=== PATIENT | male | born 1985 | race Caucasian/White ===

== ENCOUNTER 2018-10-14 07:03 | Emergency (ER) | payer OTHER ==
[2018-10-14 07:27] VITALS: BP 144/84; PULSE 73; TEMP 97.6; BMI 34.4
[2018-10-14] MEDS ORDERED: KETOROLAC TROMETHAMINE 60 MG/2 ML VIAL IM ONE (07:36)
[2018-10-14] MEDS ORDERED: LIDOCAINE 5% TOPICAL PATCH TP ONE (07:37)
[2018-10-14] MEDS ORDERED: CYCLOBENZAPRINE HCL 10 MG TABLET (FP) PO ONE (07:37)
--- NOTE | 2018-10-14 07:49 | PDOC ---
History of Present Illness - General History Source: Patient Exam Limitations: No Limitations - History of Present Illness Initial Comments: 10/14/18 07:49 Patient is a 33-year-old male with no past medical history who presents to the emergency department today for low back pain since Friday10/11/18. Patient states the day before he had lifted heavy furniture including a sofa and two dressers. Patient states he also works for [employer] and lifts heavy packages daily. He states that yesterday he took Advil and was able to go to work. However today he states he woke up and worse pain and that he was unable to move. He states the pain goes down his right leg. Denies fevers, chills, trauma , fall, frequency, urgency, hematuria, saddle anesthesia, bladder/bowel incontinence, weakness to the extremities, numbness and tingling to the extremities. <Windy Shea - Last Filed: 10/14/18 09:17> <Anupama Jeronimo - Last Filed: 10/16/18 07:32> - General Chief Complaint: Back Pain Stated Complaint: BACK PAIN Time Seen by Provider: 10/14/18 07:21 Past History - Travel Traveled outside of the country in the last 30 days: No Close contact w/someone who was outside of country & ill: No - Immunization History Td Vaccination: Yes TDAP Vaccination: Yes Immunization Up to Date: Yes - Suicide/Smoking/Psychosocial Hx Smoking Status: Yes Smoking History: Never smoked Years of Tobacco Use: 15 Have you smoked in the past 12 months: Yes Number of Cigarettes Smoked Daily: 10 'Breaking Loose' booklet given: 03/31/13 Hx Alcohol Use: No Substance Use Type: Marijuana <Windy Shea - Last Filed: 10/14/18 09:17> <Anupama Jeronimo - Last Filed: 10/16/18 07:32> - Past Medical History Allergies/Adverse Reactions: Allergies Allergy/AdvReac Type Severity Reaction Status Date / Time No Known Allergies Allergy Verified 10/14/18 07:19 Home Medications: Ambulatory Orders Cyclobenzaprine HCl [Flexeril -] 10 mg PO HS #10 tablet 10/14/18 Lidocaine 5% Patch [Lidoderm -] 1 patch TP DAILY #7 patch 10/14/18 Methylprednisolone [Medrol Dose Scottie] 4 mg PO ASDIR #21 tablet 10/14/18 Review of Systems - Review of Systems Able to Perform ROS?: Yes Comments:: 10/14/18 07:38 CONSTITUTIONAL: Absent: fever, chills, diaphoresis, generalized weakness, malaise, loss of appetite GASTROINTESTINAL: Absent: abdominal pain, abdominal distension, nausea, vomiting, diarrhea, constipation, melena, hematochezia GENITOURINARY: Absent: dysuria, frequency, urgency, hesitancy, hematuria, flank pain, genital pain MUSCULOSKELETAL: Present: low back pain Absent: arthralgia, joint swelling SKIN: Absent: rash, itching, pallor NEUROLOGIC: Absent: headache, focal weakness or paresthesias, dizziness, unsteady gait, seizure, mental status changes, bladder or bowel incontinence PSYCHIATRIC: Absent: anxiety, depression, suicidal or homicidal ideation, hallucinations. Is the patient limited Belgian proficient: No <Windy Shea - Last Filed: 10/14/18 09:17> *Physical Exam - Vital Signs Last Vital Signs Temp Pulse Resp BP Pulse Ox 97.6 F 73 16 144/84 100 10/14/18 07:17 10/14/18 07:17 10/14/18 07:17 10/14/18 07:17 10/14/18 07:17 - Physical Exam Comments: 10/14/18 07:38 GENERAL: Well developed, well nourished. Awake and alert. No acute distress. NECK: Supple. Full ROM. No JVD. Carotid pulses 2+ and symmetric, without bruits. No thyromegaly. No lymphadenopathy. MUSCULOSKELETAL TTP of the R paraspinous muscles at the level of L4-S1 with palpable knot. (+) straight leg raise testing on the right. Decreased range of motion of the spine in all planes d/t pain. ROM intact at all other joints. Calves and thighs are soft b/l. No bony deformities or midline tenderness. No CVA tenderness. EXTREMITIES: No cyanosis. No clubbing. No edema. No calf tenderness. SKIN: Warm and dry. Normal capillary refill. No rashes. No jaundice. NEUROLOGICAL: Alert, awake, appropriate. Cranial nerves 2-12 intact. No deficits to light touch and temperature in face, upper extremities and lower extremities. No motor deficits in the in face, upper extremities and lower extremities. Normoreflexic in the upper and lower extremities. Normal speech. Toes are down- going bilaterally. Gait is normal without ataxia. PSYCHIATRIC: Cooperative. Good eye contact. Appropriate mood and affect. <Windy Shea - Last Filed: 10/14/18 09:17> - Vital Signs Last Vital Signs Temp Pulse Resp BP Pulse Ox 97.6 F 73 16 144/84 100 10/14/18 07:17 10/14/18 07:17 10/14/18 07:17 10/14/18 07:17 10/14/18 07:17 <Anupama Jeronimo - Last Filed: 10/16/18 07:32> Moderate Sedation - Procedure Monitoring Vital Signs: Procedure Monitoring Vital Signs Temperature 97.6 F 10/14/18 07:17 Pulse Rate 73 10/14/18 07:17 Respiratory Rate 16 10/14/18 07:17 Blood Pressure 144/84 10/14/18 07:17 O2 Sat by Pulse Oximetry (%) 100 10/14/18 07:17 <Windy Shea - Last Filed: 10/14/18 09:17> - Procedure Monitoring Vital Signs: Procedure Monitoring Vital Signs Temperature 97.6 F 10/14/18 07:17 Pulse Rate 73 10/14/18 07:17 Respiratory Rate 16 10/14/18 07:17 Blood Pressure 144/84 10/14/18 07:17 O2 Sat by Pulse Oximetry (%) 100 10/14/18 07:17 <Anupama Jeronimo - Last Filed: 10/16/18 07:32> ED Treatment Course - Medications Given in the ED: ED Medications Discontinued Medications Generic Name Dose Route Start Last Admin Trade Name Freq PRN Reason Stop Dose Admin Cyclobenzaprine HCl 10 mg 10/14/18 07:37 10/14/18 08:00 Flexeril - PO 10/14/18 07:38 10 mg ONCE ONE Administration Ketorolac Tromethamine 60 mg 10/14/18 07:36 10/14/18 08:00 Toradol Injection - IM 10/14/18 07:37 60 mg ONCE ONE Administration Lidocaine 1 patch 10/14/18 07:37 10/14/18 08:00 Lidoderm Patch - TP 10/14/18 07:38 1 patch ONCE ONE Administration <Anupama Jeronimo - Last Filed: 10/16/18 07:32> Medical Decision Making - Medical Decision Making 10/14/18 07:38 Patient is a 33-year-old male with no past medical history who presents to the emergency department today for 3 days of low back pain, after lifting heavy furniture including a sofa and dressers. 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 -Pt with TTP of the R paraspinous muscles, L4-S1, with palpable knot consistent with muscle spasm. (+) straight leg raise on the R. -No trauma, or fever. No saddle anesthesia or bladder/bowel incontinence. No CVA tenderness. -Pt is neurologically intact on exam with no focal findings. -Toradol, flexaril, and a lidocaine patch given with some relief of symptoms -DC home. Ortho follow up given for if symptoms do not resolve. -I discussed the physical exam findings, ancillary test results and final diagnoses with the patient. I answered all of the patient's questions. The patient was satisfied with the care received and felt comfortable with the discharge plan and treatment plan. The Patient agrees to follow up with the primary care physician/specialist within 24-72 hours. Return precautions were given. <Windy Shea - Last Filed: 10/14/18 09:17> - Medical Decision Making The patient was seen and evaluated in conjunction with midlevel provider under my direct supervision, ancillary studies were reviewed. I agree with the plan as outlined by RAY Shea. HPI as outlined. 10/16/18 07:32 <Anupama Jeronimo - Last Filed: 10/16/18 07:32> *DC/Admit/Observation/Transfer - Discharge Dispostion Decision to Admit order: No <Windy Shea - Last Filed: 10/14/18 09:17> <Anupama Jeronimo - Last Filed: 10/16/18 07:32> Diagnosis at time of Disposition: Low back pain Qualifiers: Chronicity: acute Back pain laterality: right Sciatica presence: with sciatica Sciatica laterality: sciatica of right side Qualified Code(s): M54.41 - Lumbago with sciatica, right side - Discharge Dispostion Disposition: HOME Condition at time of disposition: Stable - Prescriptions Prescriptions: Cyclobenzaprine HCl [Flexeril -] 10 mg PO HS #10 tablet Lidocaine 5% Patch [Lidoderm -] 1 patch TP DAILY #7 patch Methylprednisolone [Medrol Dose Scottie] 4 mg PO ASDIR #21 tablet - Referrals Referrals: Lucio Sparrow [Primary Care Provider] - Jeff Gonzalez MD [Staff Physician] - - Patient Instructions Printed Discharge Instructions: DI for Low Back Pain Additional Instructions: You have low back pain due to a muscle spasm. Please take the medrol dose pack as prescribed. Do not take ibuprofen while taking the steroid dose pack. You were also prescribed Flexeril. Please take this medication every 8 hours for the first day. Then take the medication before you go to bed. Do not drive after taking this medication as it may make you sleepy. You may use warm compresses on your back to help with her symptoms. Please follow-up with orthopedics spine surgery this week. A referral has been provided for you. Do not lift more than 10 lbs until your symptoms resolve. Return to the emergency department if you have worsening back pain, bladder or bowel incontinence, numbness and tingling in her legs, changes in the way you walk, or any new or worsening symptoms. - Post Discharge Activity Forms/Work/School Notes: Back to Work
[2018-10-14] MEDS ORDERED: LIDOCAINE 5% TOPICAL PATCH ONE (07:52)
[2018-10-14] MEDS ORDERED: KETOROLAC TROMETHAMINE 60 MG/2 ML VIAL ONE (07:52)
[2018-10-14] MEDS ORDERED: CYCLOBENZAPRINE HCL 10 MG TABLET (FP) ONE (07:52)
[2018-10-14] MEDS ORDERED: LIDOCAINE PATCH REMOVAL MC SCH (22:00)
== END 2018-10-14 09:36 | disposition home or self-care (01) ==
LOC: JER 07:03
PROC: 3E0233Z Introduction of Anti-inflammatory into Muscle, Percutaneous Approach (ICD-10-PCS; principal; 2018-10-14)
DX: M54.41 Lumbago with sciatica, right side (principal); M62.830 Muscle spasm of back
CPT/HCPCS: 96372; 99282-25

== ENCOUNTER 2019-01-05 12:38 | Emergency (ER) | payer OTHER ==
[2019-01-05 12:43] VITALS: BP 130/71; PULSE 87; TEMP 98.6; BMI 35.2
--- NOTE | 2019-01-05 13:45 | PDOC ---
History of Present Illness - General Chief Complaint: Pain, Acute Stated Complaint: LOWER BACK PAIN Time Seen by Provider: 01/05/19 13:08 History Source: Patient Exam Limitations: No Limitations - History of Present Illness Initial Comments: 01/05/19 14:11 Patient states working for [employer], was coming down a wet staircase proximally 3 days ago when he slipped falling down approximately 8 steps on buttocks. States since that time has had resolving pain to bilateral wrists, and left elbow but deep buttock/coccyx pain has persisted. No problems with bowel or bladder, no head injury. Occurred: reports: just prior to arrival Pain Location: reports: pelvis, upper extremity Method of Injury: Yes: direct blow, fall Loss of Consciousness: no loss of consciousness Associated Symptoms (Fall): denies symptoms Past History - Travel Traveled outside of the country in the last 30 days: No Close contact w/someone who was outside of country & ill: No - Past Medical History Allergies/Adverse Reactions: Allergies Allergy/AdvReac Type Severity Reaction Status Date / Time No Known Allergies Allergy Verified 10/14/18 07:19 Home Medications: Ambulatory Orders NK [No Known Home Medication] 01/05/19 COPD: No - Immunization History Td Vaccination: Yes TDAP Vaccination: Yes Immunization Up to Date: Yes - Suicide/Smoking/Psychosocial Hx Smoking Status: Yes Smoking History: Current every day smoker Years of Tobacco Use: 15 Have you smoked in the past 12 months: Yes Number of Cigarettes Smoked Daily: 20 Information on smoking cessation initiated: No 'Breaking Loose' booklet given: 03/31/13 Hx Alcohol Use: No Drug/Substance Use Hx: No Substance Use Type: Marijuana Review of Systems - Review of Systems Able to Perform ROS?: Yes Is the patient limited Latvian proficient: Yes Constitutional: Yes: Symptoms Reported, See HPI. No: Malaise HEENTM: Yes: See HPI. No: Symptoms Reported Respiratory: Yes: See HPI. No: Symptoms reported Integumentary: Yes: Symptoms Reported, See HPI, Bruising Neurological: Yes: Symptoms reported, See HPI. No: Headache All Other Systems: Reviewed and Negative *Physical Exam - Vital Signs Last Vital Signs Temp Pulse Resp BP Pulse Ox 98.6 F 87 20 130/71 97 01/05/19 12:40 01/05/19 12:40 01/05/19 12:40 01/05/19 12:40 01/05/19 12:40 - Physical Exam General Appearance: Yes: Nourished, Appropriately Dressed, Apparent Distress, Mild Distress HEENT: positive: ALLIE, Normal ENT Inspection, Normal Voice, TMs Normal, Pharynx Normal Neck: positive: Supple, Other (no C-spine tenderness crepitus or step-offs). negative: Tender Respiratory/Chest: positive: Lungs Clear Musculoskeletal: positive: Normal Inspection. negative: Muscle Spasm, Vertebral Tenderness (no thoracic or lumbar spinal tenderness however has deep point tenderness at distal coccyx with swelling and ecchymoses noted.) Extremity: positive: Tender (bilateral thenar eminences of the hand, without crepitus or step-offs. Has full range of motion all digits, neurovascular intact to fingertips. Able to supinate and pronate both wrists, left elbow has mild superficial ecchymoses but has full range of motion with no crepitus or step-offs,) Integumentary: positive: Swelling, Ecchymosis, Bruising Neurologic: positive: crab butcher II-XII NML intact, Fully Oriented, Alert, Normal Mood/ Affect Moderate Sedation - Procedure Monitoring Vital Signs: Procedure Monitoring Vital Signs Temperature 98.6 F 01/05/19 12:40 Pulse Rate 87 01/05/19 12:40 Respiratory Rate 20 01/05/19 12:40 Blood Pressure 130/71 01/05/19 12:40 O2 Sat by Pulse Oximetry (%) 97 01/05/19 12:40 Progress Note - Progress Note Progress Note: Supposed fall with coccyx fracture. Has all clinical evidence that implies fracture therefore will hold x-rays to avoid genitalia exposure. Multiple other contusions to hands and left elbow. Will treat conservatively. *DC/Admit/Observation/Transfer Diagnosis at time of Disposition: Fractured coccyx Qualifiers: Encounter type: initial encounter Fracture type: closed Qualified Code(s): S32.2XXA - Fracture of coccyx, initial encounter for closed fracture Multiple leg contusions Qualifiers: Encounter type: initial encounter Laterality: unspecified laterality Qualified Code(s): S80.10XA - Contusion of unspecified lower leg, initial encounter - Discharge Dispostion Disposition: HOME Condition at time of disposition: Stable Decision to Admit order: No - Referrals - Patient Instructions Printed Discharge Instructions: DI for Coccyx Fracture Additional Instructions: Rest, ice to area on and off for 15 minutes 4-6 times a day Avoid heavy lifting or exercise until pain and swelling is resolved or until further directed Find soft pillow or inflatable donut to sit on until pain resolves, may be 2-3 weeks Keep area highly elevated to reduce swelling Followup with Private Dr in one to 2 days if not improving, May use ibuprofen every 6 hours as needed for pain - Post Discharge Activity Forms/Work/School Notes: Back to Work
== END 2019-01-05 14:38 | disposition home or self-care (01) ==
LOC: JERFT 12:38
DX: S32.2XXA Fracture of coccyx, initial encounter for closed fracture (principal); S60.222A Contusion of left hand, initial encounter; S60.221A Contusion of right hand, initial encounter; S50.02XA Contusion of left elbow, initial encounter; W10.8XXA Fall (on) (from) other stairs and steps, initial encounter; Y93.89 Activity, other specified; Y92.89 Other specified places as the place of occurrence of the external cause; Y99.0 Civilian activity done for income or pay
CPT/HCPCS: 99281-25